=== PATIENT | female | born 1955 | race Caucasian/White ===

== ENCOUNTER 2018-12-30 19:10 | Emergency (ER) | payer OTHER ==
[~2018-12-30] VITALS: Ht 167.6 cm; Wt 48.5 kg
[~2018-12-30 19:10] MED LIST: PARO20TA98 PO; QUET50TA5 PO
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
[2018-12-30] MEDS ORDERED: ONDANSETRON 2MG/ML, 2ML ONE (20:18)
[2018-12-30] MEDS ORDERED: MORPHINE SULFATE 4 MG/ML, 1ML ONE (20:18)
[2018-12-30 20:19] LABS: BASOPHILS # (AUTO) 0.06 x10^3/uL (0-0.1); BASOPHILS % (AUTO) 1 % (0-1); EOSINOPHILS # (AUTO) 0.13 x10^3/uL (0-0.4); EOSINOPHILS % (AUTO) 1 % (1-7); LYMPHOCYTES % (AUTO) 35 % (22-44); MD NO; MEAN CORPUSCULAR HEMOGLOBIN 31.9 pg (27.0-34.8); MEAN CORPUSCULAR HGB CONC 32.6 g/dL (32.4-35.8); MEAN CORPUSCULAR VOLUME 97.9 fL (80-100); MEAN PLATELET VOLUME 7.6 fL (7.4-10.4); MONOCYTES % (AUTO) 6 % (2-9); NEUTROPHILS # (AUTO) 5.69 x10^3/uL (1.8-6.8); NEUTROPHILS % (AUTO) 57 % (42-75); PLATELET COUNT 436 x10^3/uL (130-400); RED CELL DISTRIBUTION WIDTH 14.6 % (9.6-15.2)
[2018-12-30 20:30] LABS: ALBUMIN 3.1 g/dL (3.4-5.0); ANION GAP 6 mmol/L (5-15); CALCIUM 8.3 mg/dL (8.5-10.1); CHLORIDE 114 mmol/L (98-107); CREATININE 0.67 mg/dL (0.55-1.02)
[2018-12-30] MEDS ORDERED: MORPHINE SULFATE 4 MG/ML, 1ML IVPush PRN (20:30)
[2018-12-30] MEDS ORDERED: ONDANSETRON 2MG/ML, 2ML IVPush ONE (20:30)
[2018-12-30 20:35] LABS: ALANINE AMINOTRANSFERASE 18 U/L (12-78); ALKALINE PHOSPHATASE 109 U/L (45-117); BILIRUBIN,TOTAL 0.2 mg/dL (0.2-1.0); TOTAL PROTEIN 6.6 g/dL (6.4-8.2); TROPONIN I < 0.015 ng/mL (0.000-0.045)
--- NOTE | 2018-12-30 20:35 | NUR ---
MEDICATED PER ORDERS FOR PAIN. IV ESTABLISHED. PULSE OX APPLIED. VS STABLE
[2018-12-30] MEDS ORDERED: SODIUM CHLORIDE FLUSH 10ML SYR IVF ONE (21:00)
--- NOTE | 2018-12-30 21:00 | NUR ---
REPORT RECEIVED AND CARE ASSUMED. PT RETURNED FROM CT. STATES PAIN HAS IMPROVED AFTER MEDS. CALL LIGHT IN REACH. PT AWARE SHE IS NPO UNTIL CT RESULTS. WARM BLANKET GIVEN.
--- NOTE | 2018-12-30 21:48 | NUR ---
Pt in radiology via [facility].
[2018-12-30] MEDS ORDERED: FAMOTIDINE 20 MG/2 ML ONE (21:52)
[2018-12-30] MEDS ORDERED: MAALOX/HYOSCYAMINE/LIDOCAINE 45 ML BTL ONE (21:52)
[2018-12-30] MEDS ORDERED: FAMOTIDINE 20 MG/2 ML IVPush ONE (22:00)
[2018-12-30] MEDS ORDERED: MAALOX/HYOSCYAMINE/LIDOCAINE 45 ML BTL PO ONE (22:00)
--- NOTE | 2018-12-30 22:00 | NUR ---
PT MEDICATED FOR CONTINUED PAIN. PT REQUESTING MORE MORPHINE-AWARE WE WILL TRY THE PEPCID AND GI COCKTAIL FIRST. VSS. NO FURTHER NEEDS EXPRESSED. CALL LIGHT IN REACH.
[2018-12-30] MEDS ORDERED: HYDROcodone/APAP 5/325 TABLET ONE (22:58)
[2018-12-30] MEDS ORDERED: HYDROcodone/APAP 5/325 TABLET PO ONE (23:00)
--- NOTE | 2018-12-30 23:02 | NUR ---
MEDICATED PER EMAR FOR ABD PAIN RATED AT 7/10
[2018-12-30 23:04] VITALS: BP 139/70
[2018-12-30] MEDS ORDERED: OMNIPAQUE 350 MG/ML, 100ML BOTTLE ONE (23:37)
== END 2018-12-30 23:06 | disposition home or self-care (01) ==
LOC: ED 19:57
DX: K29.00 Acute gastritis without bleeding (principal); Z90.710 Acquired absence of both cervix and uterus; F17.210 Nicotine dependence, cigarettes, uncomplicated
CPT/HCPCS: 36415; 71046; 74177; 80053; 83690; 84484; 85025; 93005; 96374; 96375; 99284; J2270; J2405; J3490; Q9967